=== PATIENT | male | born 1950 | race Caucasian/White ===

== ENCOUNTER 2017-01-07 17:31 | Emergency (ER) | payer OTHER ==
[~2017-01-07] VITALS: Ht 170.2 cm; Wt 90.8 kg
[2017-01-07 18:46] LABS: BASOPHIL % 0.8 % (0-2); PLATELET COUNT 254 x10^3mcL (130-400); RED CELL DISTRIBUTION WIDTH 12.4 % (11.5-14.5)
[2017-01-07 18:57] LABS: ALBUMIN 2.8 g/dL (3.4-5.0); BILIRUBIN TOTAL 0.3 mg/dL (0.20-1.00); CALCIUM 8.2 mg/dL (8.5-10.1); CARBON DIOXIDE 32.1 mmol/L (21-32); CREATININE SERUM 1.4 mg/dL (0.7-1.3); TOTAL PROTEIN, SERUM 6.3 g/dL (6.4-8.2)
[2017-01-07 21:00] VITALS: BP 161/94
== END 2017-01-07 21:00 | disposition home or self-care (01) ==
LOC: ED 17:31
PROVIDERS: Emergency Medicine
DX: I10 Essential (primary) hypertension (principal); E11.9 Type 2 diabetes mellitus without complications
CPT/HCPCS: 83880; J3490; Q0092

== ENCOUNTER 2017-01-19 17:19 | Emergency (ER) | payer OTHER ==
[~2017-01-19] VITALS: Ht 170.2 cm; Wt 93.0 kg
[2017-01-19 19:34] VITALS: BP 178/88
== END 2017-01-19 19:34 | disposition home or self-care (01) ==
LOC: ED 17:19
DX: G51.0 Bell's palsy (principal); J45.909 Unspecified asthma, uncomplicated; I10 Essential (primary) hypertension; E11.9 Type 2 diabetes mellitus without complications; Z79.51 Long term (current) use of inhaled steroids; Z79.84 Long term (current) use of oral hypoglycemic drugs

== ENCOUNTER 2017-02-01 18:28 | Emergency (ER) | payer OTHER ==
[2017-02-01 19:22] LABS: CALCIUM 9.2 mg/dL (8.5-10.1); CARBON DIOXIDE 30.5 mmol/L (21-32); CREATININE SERUM 2.2 mg/dL (0.7-1.3); POTASSIUM SERUM 3.4 mmol/L (3.5-5.1)
[2017-02-01 19:24] LABS: BASOPHIL % 0.3 % (0-2); PLATELET COUNT 278 x10^3mcL (130-400)
[2017-02-01 19:26] LABS: ALBUMIN 3.1 g/dL (3.4-5.0); BILIRUBIN TOTAL 0.5 mg/dL (0.20-1.00); TOTAL PROTEIN, SERUM 7.1 g/dL (6.4-8.2)
[2017-02-01 22:59] VITALS: BP 147/55
== END 2017-02-01 22:59 | disposition home or self-care (01) ==
LOC: ED 18:28
PROVIDERS: Emergency Medicine
DX: H81.10 Benign paroxysmal vertigo, unspecified ear (principal); E86.0 Dehydration; G51.0 Bell's palsy; E11.9 Type 2 diabetes mellitus without complications; J45.909 Unspecified asthma, uncomplicated; I10 Essential (primary) hypertension; I25.10 Atherosclerotic heart disease of native coronary artery without angina pectoris; R11.10 Vomiting, unspecified; Z79.899 Other long term (current) drug therapy
CPT/HCPCS: 83880; J2405; J2765; J7030; J8597

== ENCOUNTER 2017-05-12 13:22 | Emergency (ER) | payer OTHER ==
[~2017-05-12] VITALS: Ht 170.2 cm; Wt 89.8 kg
[2017-05-12 13:27] VITALS: Ht 170.2 cm; Wt 89.8 kg
[2017-05-12 16:13] VITALS: BP 124/76
== END 2017-05-12 16:13 | disposition home or self-care (01) ==
LOC: ED 13:22
DX: M10.9 Gout, unspecified (principal); I10 Essential (primary) hypertension; E11.9 Type 2 diabetes mellitus without complications; G43.909 Migraine, unspecified, not intractable, without status migrainosus; Z95.1 Presence of aortocoronary bypass graft
CPT/HCPCS: J1170; J1885; Q0092; Q0162

== ENCOUNTER 2017-08-04 18:53 | Emergency (ER) | payer OTHER, MEDICAID ==
[~2017-08-04] VITALS: Ht 170.2 cm; Wt 84.8 kg
[~2017-08-04 18:53] MED LIST: ALLOPURINOL100 MG PO; ATENOLOL50 MG PO; ATORVASTATIN CA40 M1 PO; COL0.6 PO; FUROSEMIDE20 MG PO; GLYBURIDE2.5 MG PO; HYDROCHLOROTHIA50 MG PO; IBUPROFEN400 MG PO; KAPVAY0.1 MG PO; MEDDP PO; MELOXICAM7.5 M1 PO; NORCO1 TA2 PO; PREDNISONE10 MG PO; PROVENTIL0.09 MG/A1 INH; TEGRETOL200 MG PO; ZES10 PO; ZESTRIL20 MG PO; ZYL100 PO
[2017-08-04 18:58] VITALS: Ht 170.2 cm; Wt 84.8 kg
[2017-08-04 21:38] LABS: BASOPHIL % 0.3 % (0-2); PLATELET COUNT 281 x10^3mcL (130-400)
[2017-08-04 21:39] LABS: RED CELL DISTRIBUTION WIDTH 14.6 % (11.5-14.5)
[2017-08-04 21:45] LABS: CALCIUM 9.2 mg/dL (8.5-10.1); CARBON DIOXIDE 30.8 mmol/L (21-32); CREATININE SERUM 1.3 mg/dL (0.7-1.3); POTASSIUM SERUM 4.1 mmol/L (3.5-5.1)
[2017-08-04 21:49] LABS: BILIRUBIN TOTAL 0.48 mg/dL (0.20-1.00)
[2017-08-04 21:50] LABS: ALBUMIN 2.7 g/dL (3.4-5.0)
[2017-08-04 23:42] VITALS: BP 146/90
== END 2017-08-04 23:44 | disposition home or self-care (01) ==
LOC: ED 18:53
PROVIDERS: Emergency Medicine
DX: M54.5 Low back pain (principal); M10.9 Gout, unspecified; J45.909 Unspecified asthma, uncomplicated; I10 Essential (primary) hypertension; E11.9 Type 2 diabetes mellitus without complications
CPT/HCPCS: 72072; J1885; J7512

== ENCOUNTER 2017-09-08 11:07 | Emergency (ER) | payer OTHER, MEDICAID ==
[~2017-09-08] VITALS: Ht 170.2 cm; Wt 88.5 kg
[2017-09-08 11:10] VITALS: Ht 170.2 cm; Wt 88.5 kg
[2017-09-08 11:43] LABS: BASOPHIL % 0.6 % (0-2); PLATELET COUNT 229 x10^3mcL (130-400); RED CELL DISTRIBUTION WIDTH 14.1 % (11.5-14.5)
[2017-09-08 11:51] LABS: CALCIUM 8.5 mg/dL (8.5-10.1); CARBON DIOXIDE 28.3 mmol/L (21-32); CHLORIDE SERUM 108 mmol/L (98-107); CREATININE SERUM 1.2 mg/dL (0.7-1.3); GFR1 > 60 mL/min; GLUCOSE SERUM 123 mg/dL (74-106); POTASSIUM SERUM 3.8 mmol/L (3.5-5.1); SODIUM SERUM 143 mmol/L (136-145)
[2017-09-08 11:56] LABS: ALBUMIN 3.2 g/dL (3.4-5.0); ALKALINE PHOSPHATASE 107 U/L (46-116); ALT/SGPT 23 U/L (16-63); AST/SGOT 21 U/L (15-37); BILIRUBIN TOTAL 0.27 mg/dL (0.20-1.00); CHOLESTEROL 178 mg/dL (<200); HDL CHOLESTEROL 43 mg/dL (40-60); MAGNESIUM 1.7 mg/dL (1.8-2.4); TOTAL PROTEIN, SERUM 6.2 g/dL (6.4-8.2); URIC ACID 5.8 mg/dL (3.5-7.2)
[2017-09-08 14:49] VITALS: BP 123/77
== END 2017-09-08 14:49 | disposition home or self-care (01) ==
LOC: ED 11:07
PROVIDERS: Emergency Medicine
DX: I10 Essential (primary) hypertension (principal); E46 Unspecified protein-calorie malnutrition; E11.9 Type 2 diabetes mellitus without complications; E78.00 Pure hypercholesterolemia, unspecified; M10.9 Gout, unspecified; J45.909 Unspecified asthma, uncomplicated; Z95.1 Presence of aortocoronary bypass graft
CPT/HCPCS: 36415; 83880; Q0092